=== PATIENT | female | born 1980 | race Two or more races ===

== ENCOUNTER 2017-04-26 03:38 | Emergency (ER) | payer MEDICAID, OTHER ==
[~2017-04-26] VITALS: Ht 152.4 cm; Wt 90.7 kg
[~2017-04-26 03:38] MED LIST: AMPH25CA PO
[2017-04-26] MEDS ORDERED: AZITHROMYCIN 250 MG TABLET PO ONE (04:00)
--- NOTE | 2017-04-26 04:10 | NUR ---
Pt ambulated to room with steady gait. Pt c/o sore throat and cough. Pt seen by Dr. Alvarado, given ABT and is stable for discharge per MD. Pt given ACI. Pt verbalized understanding of dc instructions. Pt ambulated out of ER with steady gait.
[2017-04-26 04:12] VITALS: BP 139/78
[2017-04-26] MEDS ORDERED: AZITHROMYCIN 250 MG TABLET ONE (04:16)
== END 2017-04-26 04:10 | disposition home or self-care (01) ==
LOC: ER 03:38
DX: J45.909 Unspecified asthma, uncomplicated (principal); E03.9 Hypothyroidism, unspecified; F17.200 Nicotine dependence, unspecified, uncomplicated
CPT/HCPCS: 99283; A4663; Q0144

== ENCOUNTER 2017-07-09 09:34 | Emergency (ER) | payer OTHER ==
[~2017-07-09] VITALS: Ht 154.9 cm; Wt 99.8 kg
--- NOTE | 2017-07-09 09:52 | NUR ---
Patient discharged to home in stable conditon. Written and verbal after care instructions given. Patient verbalizes understanding of instructions.
== END 2017-07-09 09:54 | disposition home or self-care (01) ==
LOC: ER 09:34
DX: J45.909 Unspecified asthma, uncomplicated (principal); E03.9 Hypothyroidism, unspecified; F17.200 Nicotine dependence, unspecified, uncomplicated
CPT/HCPCS: A4663

== ENCOUNTER 2018-07-05 09:57 | Emergency (ER) | payer OTHER ==
[~2018-07-05] VITALS: Ht 154.9 cm; Wt 77.1 kg
[2018-07-05] MEDS ORDERED: IV NORMAL SALINE 500 ML BAG IV ONE (10:15)
[2018-07-05] MEDS ORDERED: MORPHINE SULFATE 2 MG/1 ML DISP.SYRIN IV ONE (10:15)
--- NOTE | 2018-07-05 10:20 | NUR ---
PATIENT SEEN BY DR CORDERO FOR C/O ABDOMINAL PAIN. PLACED ON MONITOR.
[2018-07-05] MEDS ORDERED: MORPHINE SULFATE 4 MG/1 ML DISP.SYRIN ONE (10:27)
[2018-07-05 10:33] LABS: CARBON DIOXIDE 23 mmol/L (21-32); CHLORIDE 103 mmol/L (98-107); CREATININE 0.7 mg/dL (0.6-1.3); GLUCOSE 125 mg/dL (74-106); POTASSIUM 4.2 mmol/L (3.5-5.1); UREA NITROGEN, BLOOD 17 mg/dL (7-18)
[2018-07-05 10:35] LABS: BASOPHILS % (AUTO) 0.6 % (0.0-2.0); EOSINOPHILS # (AUTO) 0.1 K/uL (0.0-0.7); EOSINOPHILS % (AUTO) 1.4 % (0.0-7.0); HEMATOCRIT 44.1 % (31.2-41.9); HEMOGLOBIN 15.6 g/dL (10.9-14.3); LYMPHOCYTES # (AUTO) 2.6 K/uL (20.0-40.0); LYMPHOCYTES % (AUTO) 28.8 % (20.5-51.5); MEAN CORPUSCULAR HEMOGLOBIN 31.4 uug (24.7-32.8); MEAN CORPUSCULAR HGB CONC 35 g/dL (32.3-35.6); MONOCYTES # (AUTO) 0.5 K/uL (2.0-10.0); MONOCYTES % (AUTO) 5.6 % (0.0-11.0); NEUTROPHILS # (AUTO) 5.7 K/uL (1.8-8.9); NEUTROPHILS % (AUTO) 63.6 % (38.5-71.5); PLATELET COUNT (AUTO) 380 K/uL (179-408); RED BLOOD CELL COUNT(AUTO) 4.96 MIL/uL (3.63-4.92); WHITE BLOOD COUNT (AUTO) 8.9 K/uL (3.8-11.8)
[2018-07-05 10:38] LABS: ALANINE AMINOTRANSFERASE 44 U/L (14-59); ALKALINE PHOSPHATASE 82 U/L (50-136); ASPARTATE AMINOTRANSFERASE 15 U/L (15-37); BILIRUBIN,DIRECT < 0.1 mg/dL (0.0-0.2); BILIRUBIN,TOTAL 0.2 mg/dL (0.2-1.0); LIPASE 141 U/L (73-393); TOTAL PROTEIN, SERUM 7.6 g/dL (6.4-8.2)
[2018-07-05] MEDS ORDERED: SWABABLE VALVE TRANSFER SET EA MC ONE (11:10)
[2018-07-05] MEDS ORDERED: IOHEXOL 300MG/ML 100 ML INFUS..BTL ONE (11:10)
[2018-07-05] MEDS ORDERED: IV NORMAL SALINE 250 ML IV ONE (11:10)
--- NOTE | 2018-07-05 11:52 | NUR ---
PATIENT STATES PAIN HAS DIMINISHED.
--- NOTE | 2018-07-05 12:10 | NUR ---
IV removed. Catheter intact and site benign. Pressure and 4x4 gauze applied to site. No bleeding noted.
--- NOTE | 2018-07-05 12:10 | NUR ---
DC AND FOLLOW UP INSTRUCTIONS GIVEN AND EXPLAINED TO PATIENT WHO STATES SHE UNDERSTANDS ALL INSTRUCTIONS.
== END 2018-07-05 12:14 | disposition home or self-care (01) ==
LOC: ER 09:57
DX: G89.18 Other acute postprocedural pain (principal); R10.33 Periumbilical pain; J45.909 Unspecified asthma, uncomplicated; F17.200 Nicotine dependence, unspecified, uncomplicated; E03.9 Hypothyroidism, unspecified; Z90.49 Acquired absence of other specified parts of digestive tract
CPT/HCPCS: 36415; 74177; 80048; 80076; 83690; 84702; 85025; 96374; 99284; J2270; Q9967; A4663; J7040; J7050

== ENCOUNTER 2018-08-15 21:27 | Emergency (ER) | payer OTHER ==
[~2018-08-15] VITALS: Ht 154.9 cm; Wt 86.2 kg
--- NOTE | 2018-08-15 22:33 | NUR ---
Pt. ambulated into ED w/ c/o cough x 2 days w/ yellowish/brownish discharge - pt. is a long time smoker and has asthma although has not had a problem or used her inhaler in quite some time, and 8/10 lower back pain that radiates along her R LE - pt. states she has a chronic sciatic nerve problem
[2018-08-15] MEDS ORDERED: IBUPROFEN 800 MG TABLET PO ONE (22:45)
[2018-08-15] MEDS ORDERED: IBUPROFEN 800 MG TABLET ONE (22:49)
--- NOTE | 2018-08-15 22:56 | NUR ---
Patient discharged to home in stable conditon. Written and verbal after care instructions given. Patient verbalizes understanding of instructions. Pt. d/c w/ prescription per MD order, d/c papers signed, instructed not to drive, all belongings w/ pt., ID band removed, ambulated w/ steady gait off unit, NAD,
== END 2018-08-15 23:00 | disposition home or self-care (01) ==
LOC: ER 21:27
DX: M54.41 Lumbago with sciatica, right side (principal); J45.909 Unspecified asthma, uncomplicated; E03.9 Hypothyroidism, unspecified; Z90.49 Acquired absence of other specified parts of digestive tract; F17.200 Nicotine dependence, unspecified, uncomplicated
CPT/HCPCS: A4663

== ENCOUNTER 2018-11-29 23:40 | Emergency (ER) | payer OTHER ==
[~2018-11-29] VITALS: Ht 154.9 cm; Wt 93.9 kg
--- NOTE | 2018-11-30 00:04 | NUR ---
Came in to ER c/o flu like symptoms; cough, congestion and chest wall pain on inspiration x 1 week. To room 2B. Seen and evaluated by Dr. Fregoso.
[2018-11-30] MEDS ORDERED: ALBUTEROL SULFATE 2.5 MG/3 ML NEBU NEB ONE ×2 (00:15→00:45)
[2018-11-30] MEDS ORDERED: BENZONATATE 100 MG CAPSULE PO ONE (00:15)
[2018-11-30] MEDS ORDERED: IPRATROPIUM BROMIDE 0.5 MG/2.5 ML NEBU NEB ONE (00:15)
[2018-11-30] MEDS ORDERED: IPRATROPIUM BROMIDE 0.5 MG/2.5 ML NEBU ONE (00:22)
[2018-11-30] MEDS ORDERED: ALBUTEROL SULFATE 2.5 MG/3 ML NEBU ONE ×2 (00:22→00:49)
--- NOTE | 2018-11-30 00:23 | NUR ---
Breathing treatment given by RT.
[2018-11-30] MEDS ORDERED: BENZONATATE 100 MG CAPSULE ONE (00:24)
--- NOTE | 2018-11-30 00:35 | NUR ---
Reevaluated by Dr. Fregoso after resp. treatment. New orders noted.
--- NOTE | 2018-11-30 00:43 | NUR ---
Patient coughing non productively. Continuous Albuterol respiratory treatment given by Yosvany ESPAÑA. VS stable.
[2018-11-30] MEDS ORDERED: predniSONE 50 MG TABLET ONE (00:45)
[2018-11-30] MEDS ORDERED: predniSONE 10 MG TABLET ONE (00:45)
[2018-11-30] MEDS ORDERED: predniSONE 20 MG TABLET ONE (00:45)
[2018-11-30] MEDS ORDERED: predniSONE 10 MG TABLET PO ONE (00:45)
--- NOTE | 2018-11-30 01:10 | NUR ---
Ambulated to the BR; voided and having her menstruation. Pad provided.
--- NOTE | 2018-11-30 01:35 | NUR ---
Patient with on going respiratory treatment but patient wants to leave. 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 Dr Fregoso informed. spoke to patient.
--- NOTE | 2018-11-30 01:40 | NUR ---
Patient does not wish to proceed with medical care recommended by Dr. Fregoso. Patient given information related to possible complications, up to and including , which could occur as a result of leaving the hospital at this time. Patient verbalizes understanding of risks involved due to leaving against medical advice. Patient has signed AMA form.
[2018-11-30 02:02] VITALS: BP 128/70
== END 2018-11-30 01:45 | disposition left against medical advice (07) ==
LOC: ER 23:46
DX: J45.901 Unspecified asthma with (acute) exacerbation (principal); J20.9 Acute bronchitis, unspecified; E78.00 Pure hypercholesterolemia, unspecified; E03.9 Hypothyroidism, unspecified; F11.10 Opioid abuse, uncomplicated; F15.10 Other stimulant abuse, uncomplicated; F17.210 Nicotine dependence, cigarettes, uncomplicated; Z90.49 Acquired absence of other specified parts of digestive tract
CPT/HCPCS: 94640 ×2; 99284; J7512 ×3; A4663; J3590

== ENCOUNTER 2018-12-01 10:26 | Emergency (ER) | payer OTHER ==
[~2018-12-01] VITALS: Ht 154.9 cm; Wt 68.0 kg
--- NOTE | 2018-12-01 10:34 | NUR ---
Dr Merchant at the bedside for MSE.
[2018-12-01] MEDS ORDERED: predniSONE 10 MG TABLET ONE (10:43)
[2018-12-01] MEDS ORDERED: predniSONE 50 MG TABLET ONE (10:44)
[2018-12-01] MEDS ORDERED: predniSONE 10 MG TABLET PO ONE (10:45)
[2018-12-01] MEDS ORDERED: ALBUTEROL SULFATE 2.5 MG/3 ML NEBU NEB ONE (10:45)
[2018-12-01] MEDS ORDERED: IPRATROPIUM BROMIDE 0.5 MG/2.5 ML NEBU NEB ONE (10:45)
[2018-12-01] MEDS ORDERED: IPRATROPIUM BROMIDE 0.5 MG/2.5 ML NEBU ONE (10:51)
[2018-12-01] MEDS ORDERED: ALBUTEROL SULFATE 2.5 MG/3 ML NEBU ONE (10:51)
--- NOTE | 2018-12-01 11:34 | NUR ---
Patient discharged to home in stable conditon. Written and verbal after care instructions given. Patient verbalizes understanding of instructions. AMBULATORY, STEADY GAIT OUT OF ER.
[2018-12-01 11:35] VITALS: BP 124/86
== END 2018-12-01 11:37 | disposition home or self-care (01) ==
LOC: ER 10:26
DX: J20.9 Acute bronchitis, unspecified (principal); E78.00 Pure hypercholesterolemia, unspecified; E03.9 Hypothyroidism, unspecified; F11.10 Opioid abuse, uncomplicated; F15.10 Other stimulant abuse, uncomplicated; F17.210 Nicotine dependence, cigarettes, uncomplicated; Z90.49 Acquired absence of other specified parts of digestive tract
CPT/HCPCS: 94640; 99283; J7512 ×2; A4663; J3590

== ENCOUNTER 2019-02-28 07:05 | Emergency (ER) | payer OTHER ==
[~2019-02-28] VITALS: Ht 154.9 cm; Wt 95.3 kg
[2019-02-28] MEDS ORDERED: BP MED (07:24)
[2019-02-28] MEDS ORDERED: prozac (07:24)
[2019-02-28] MEDS ORDERED: wellbutrin (07:24)
[2019-02-28] MEDS ORDERED: predniSONE 20 MG TABLET PO ONE (07:45)
[2019-02-28] MEDS ORDERED: ALBUTEROL SULFATE 2.5 MG/3 ML NEBU NEB ONE (07:45)
[2019-02-28] MEDS ORDERED: predniSONE 10 MG TABLET ONE (07:49)
[2019-02-28] MEDS ORDERED: predniSONE 50 MG TABLET ONE (07:49)
[2019-02-28] MEDS ORDERED: ALBUTEROL SULFATE 2.5 MG/3 ML NEBU ONE (07:50)
== END 2019-02-28 08:41 | disposition home or self-care (01) ==
LOC: ER 07:11
DX: J45.901 Unspecified asthma with (acute) exacerbation (principal); J06.9 Acute upper respiratory infection, unspecified; I10 Essential (primary) hypertension; E78.00 Pure hypercholesterolemia, unspecified; F32.9 Major depressive disorder, single episode, unspecified; E03.9 Hypothyroidism, unspecified; F17.210 Nicotine dependence, cigarettes, uncomplicated; Z90.49 Acquired absence of other specified parts of digestive tract; Z79.899 Other long term (current) drug therapy
CPT/HCPCS: 71045; A4663; J7512

== ENCOUNTER 2019-03-06 20:35 | Emergency (ER) | payer OTHER ==
[~2019-03-06] VITALS: Ht 154.9 cm; Wt 90.7 kg
[~2019-03-06 20:35] MED LIST changes: -AMPH25CA PO; +BP MED; +prozac; +wellbutrin
[2019-03-06] MEDS: SULFAMETH/TRIMETH 800/160 MG TABLET PO ONE (21:25)
[2019-03-06] MEDS ORDERED: SULFAMETH/TRIMETH 800/160 MG TABLET ONE (21:28)
--- NOTE | 2019-03-06 21:30 | NUR ---
Patient discharged to home in stable conditon. Written and verbal after care instructions given. Patient verbalizes understanding of instructions. WALKED OUT OF ER WITH NO DISTRESS NOTED.
[2019-03-06 21:31] VITALS: BP 118/84
== END 2019-03-06 21:32 | disposition home or self-care (01) ==
LOC: ER 20:35
DX: L98.9 Disorder of the skin and subcutaneous tissue, unspecified (principal); E78.00 Pure hypercholesterolemia, unspecified; J45.909 Unspecified asthma, uncomplicated; F32.9 Major depressive disorder, single episode, unspecified; E03.9 Hypothyroidism, unspecified; F17.210 Nicotine dependence, cigarettes, uncomplicated; F15.10 Other stimulant abuse, uncomplicated; F11.10 Opioid abuse, uncomplicated; Z71.6 Tobacco abuse counseling; Z90.49 Acquired absence of other specified parts of digestive tract; Z79.899 Other long term (current) drug therapy
CPT/HCPCS: A4663

== ENCOUNTER 2019-06-16 09:40 | Emergency (ER) | payer OTHER ==
[~2019-06-16] VITALS: Ht 154.9 cm; Wt 102.5 kg
--- NOTE | 2019-06-16 10:00 | NUR ---
Patient discharged to home in stable conditon. Written and verbal after care instructions given. Patient verbalizes understanding of instructions. Patient ambulated with stable gait.
[2019-06-16 10:01] VITALS: BP 145/87
== END 2019-06-16 10:05 | disposition home or self-care (01) ==
LOC: ER 09:40
DX: J02.8 Acute pharyngitis due to other specified organisms (principal); B97.89 Other viral agents as the cause of diseases classified elsewhere; E78.00 Pure hypercholesterolemia, unspecified; J45.909 Unspecified asthma, uncomplicated; F32.9 Major depressive disorder, single episode, unspecified; E03.9 Hypothyroidism, unspecified; F17.210 Nicotine dependence, cigarettes, uncomplicated; F12.10 Cannabis abuse, uncomplicated; F11.10 Opioid abuse, uncomplicated; Z90.49 Acquired absence of other specified parts of digestive tract; Z79.899 Other long term (current) drug therapy
CPT/HCPCS: A4663

== ENCOUNTER 2020-11-29 08:21 | Emergency (ER) | payer OTHER ==
[~2020-11-29] VITALS: Ht 152.4 cm; Wt 102.1 kg
[~2020-11-29 08:21] MED LIST changes: +CIPR250T4 PO; +PRED20TA PO
--- NOTE | 2020-11-29 08:42 | NUR ---
MD Fregoso at bedside for assessment
[2020-11-29] MEDS ORDERED: IBUP800T54 PO (08:56)
--- NOTE | 2020-11-29 09:01 | NUR ---
Patient discharged to home in stable condition. No signs of acute distress noted, Rx sent to pharmacy, took all belongings. Written and verbal after care instructions given. Patient verbalizes understanding of instructions. Stressed follow up or return to ER for worsening s/s.
[2020-11-29 09:06] VITALS: BP 134/68
== END 2020-11-29 09:01 | disposition home or self-care (01) ==
LOC: ER 08:22
DX: M54.42 Lumbago with sciatica, left side (principal); M54.41 Lumbago with sciatica, right side; G56.03 Carpal tunnel syndrome, bilateral upper limbs; E03.9 Hypothyroidism, unspecified; J45.909 Unspecified asthma, uncomplicated; Z82.49 Family history of ischemic heart disease and other diseases of the circulatory system; Z83.3 Family history of diabetes mellitus; Z82.3 Family history of stroke; F17.210 Nicotine dependence, cigarettes, uncomplicated
CPT/HCPCS: A4663

== ENCOUNTER 2021-02-20 01:19 | Emergency (ER) | payer OTHER ==
[~2021-02-20] VITALS: Ht 152.4 cm; Wt 90.7 kg
[~2021-02-20 01:19] MED LIST changes: +IBUP800T54 PO
--- NOTE | 2021-02-20 01:30 | NUR ---
Patient arrived at the ER with c/o of right lower quadrant abdominal pain, hard time urinating and feeling bloated, after having sexual intercourse with her boyfriend yesterday.
--- NOTE | 2021-02-20 01:31 | NUR ---
Dr. Moreira at bedside for MSE.
[2021-02-20 01:56] LABS: HEMATOCRIT 43.2 % (31.2-41.9); MEAN CORPUSCULAR HEMOGLOBIN 30.3 uug (24.7-32.8); PLATELET COUNT (AUTO) 324 K/uL (179-408)
--- NOTE | 2021-02-20 02:44 | NUR ---
Patient discharged to home in stable condition. Written and verbal after care instructions given. Patient verbalizes understanding of instructions. Stressed follow up or return to ER for worsening s/s.
[2021-02-20] MEDS ORDERED: IV NORMAL SALINE 250 ML IV ONE (03:14)
[2021-02-20] MEDS ORDERED: IOHEXOL 300MG/ML 100 ML INFUS..BTL ONE (03:14)
[2021-02-20] MEDS ORDERED: SWABABLE VALVE TRANSFER SET EA MC ONE (03:14)
[2021-02-20 04:08] VITALS: BP 137/89
[2021-02-20 04:44] LABS: CREATININE 0.8 mg/dL (0.6-1.3); POTASSIUM 3.7 mmol/L (3.5-5.1)
[2021-02-20 04:45] LABS: BILIRUBIN,DIRECT 0.1 mg/dL (0.0-0.2); BILIRUBIN,TOTAL 0.3 mg/dL (0.2-1.0)
[2021-02-20 04:46] LABS: TOTAL PROTEIN, SERUM 7.7 g/dL (6.4-8.2)
== END 2021-02-20 02:44 | disposition home or self-care (01) ==
LOC: ER 01:28
DX: R10.31 Right lower quadrant pain (principal); F17.210 Nicotine dependence, cigarettes, uncomplicated; Z83.3 Family history of diabetes mellitus; Z82.3 Family history of stroke; Z82.49 Family history of ischemic heart disease and other diseases of the circulatory system; E03.9 Hypothyroidism, unspecified; Z90.49 Acquired absence of other specified parts of digestive tract; J45.909 Unspecified asthma, uncomplicated; R03.0 Elevated blood-pressure reading, without diagnosis of hypertension
CPT/HCPCS: 36415; 83605; 83690; 85025; A4663; J7050; Q9967

== ENCOUNTER 2021-03-08 14:35 | Emergency (ER) | payer OTHER ==
[~2021-03-08] VITALS: Ht 152.4 cm; Wt 90.7 kg
[2021-03-08] MEDS ORDERED: IBUP-1955 PO (15:08)
[2021-03-08] MEDS ORDERED: ACET-2154 PO (15:08)
[2021-03-08] MEDS ORDERED: BACL10TA PO (15:08)
[2021-03-08] MEDS ORDERED: LIDO30AD10 TD (15:08)
[2021-03-08 15:10] LABS: *URINE HCG, QUAL NEGATIVE (NEGATIVE)
[2021-03-08] MEDS ORDERED: DEXAMETHASONE SOD PHOSPHATE 4 MG INJ IM ONE (15:15)
[2021-03-08] MEDS ORDERED: LIDOCAINE 5% PATCH TD ONE ×2 (15:15→15:44)
[2021-03-08] MEDS ORDERED: KETOROLAC TROMETHAMINE 30 MG INJ IM ONE (15:15)
[2021-03-08] MEDS ORDERED: ACETAMINOPHEN 325 MG TABLET PO ONE (15:15)
[2021-03-08] MEDS ORDERED: ACETAMINOPHEN 325 MG TABLET ONE (15:43)
[2021-03-08] MEDS ORDERED: KETOROLAC TROMETHAMINE 30 MG INJ ONE (15:44)
[2021-03-08] MEDS ORDERED: DEXAMETHASONE SOD PHOSPHATE 4 MG INJ ONE (15:44)
== END 2021-03-08 16:00 | disposition home or self-care (01) ==
LOC: ER 14:37
DX: S16.1XXA Strain of muscle, fascia and tendon at neck level, initial encounter (principal); X50.0XXA Overexertion from strenuous movement or load, initial encounter; X50.9XXA Other and unspecified overexertion or strenuous movements or postures, initial encounter; Y93.89 Activity, other specified; Y92.89 Other specified places as the place of occurrence of the external cause; J45.909 Unspecified asthma, uncomplicated; F17.210 Nicotine dependence, cigarettes, uncomplicated; E03.9 Hypothyroidism, unspecified; R03.0 Elevated blood-pressure reading, without diagnosis of hypertension; Z83.3 Family history of diabetes mellitus; Z82.3 Family history of stroke; Z82.49 Family history of ischemic heart disease and other diseases of the circulatory system; Z90.49 Acquired absence of other specified parts of digestive tract; E66.9 Obesity, unspecified; Z68.39 Body mass index [BMI] 39.0-39.9, adult
CPT/HCPCS: 84703; 99283; 99406; J1100; J1885; A4663

== ENCOUNTER 2021-07-21 10:11 | Emergency (ER) | payer OTHER ==
[~2021-07-21] VITALS: Ht 152.4 cm; Wt 90.7 kg
[~2021-07-21 10:11] MED LIST changes: +ACET-2154 PO; +BACL10TA PO; +IBUP-1955 PO; +LIDO30AD10 TD
[2021-07-21] MEDS ORDERED: ONDANSETRON 4 MG/2 ML VIAL IV ONE (10:45)
[2021-07-21] MEDS ORDERED: FAMOTIDINE. 20 MG/2 ML VIAL IV ONE ×2 (10:45→11:09)
[2021-07-21] MEDS ORDERED: IV NORMAL SALINE 100 ML BAG IV ONE (10:45)
[2021-07-21] MEDS ORDERED: SWABABLE VALVE TRANSFER SET EA MC ONE (11:01)
[2021-07-21] MEDS ORDERED: IV NORMAL SALINE 250 ML IV ONE (11:01)
[2021-07-21] MEDS ORDERED: IOHEXOL 300MG/ML 100 ML INFUS..BTL ONE (11:01)
[2021-07-21] MEDS ORDERED: ONDANSETRON 4 MG/2 ML VIAL ONE (11:09)
[2021-07-21 11:13] LABS: HEMATOCRIT 43.1 % (31.2-41.9); MEAN CORPUSCULAR HEMOGLOBIN 30.1 uug (24.7-32.8); MEAN CORPUSCULAR VOLUME 87.9 fL (75.5-95.3); PLATELET COUNT (AUTO) 294 K/uL (179-408)
[2021-07-21 11:14] LABS: *BILIRUBIN,URIN NEGATIVE (NEGATIVE); *BLOOD, URINE NEGATIVE (NEGATIVE); *CLARITY,URINE CLOUDY (CLEAR); *COLOR,URINE YELLOW (YELLOW); *KETONES,URINE NEGATIVE (NEGATIVE); LEUKOCYTE ESTERASE ,URINE NEGATIVE (NEGATIVE); NITRITE, URINE NEGATIVE (NEGATIVE); PH,URINE 5.5 (5.0-8.0); UGLUCOSE NEGATIVE (NEGATIVE)
[2021-07-21 11:16] LABS: *URINE HCG, QUAL NEGATIVE (NEGATIVE)
[2021-07-21 11:24] LABS: BACTERIA,URINE NONE SEEN /HPF (NONE SEEN); RBC,URINE 0-3 /HPF (0-3); SQUAMOUS EPITHELIAL CELL,UR FEW /HPF (NONE SEEN); WBC,URINE 0-3 /HPF (0-3)
[2021-07-21 11:25] LABS: BILIRUBIN,TOTAL 0.6 mg/dL (0.2-1.0); CREATININE 0.7 mg/dL (0.6-1.3); POTASSIUM 4.1 mmol/L (3.5-5.1); TOTAL PROTEIN, SERUM 7.3 g/dL (6.4-8.2); URINE AMORPHOUS URATE MANY /HPF
--- NOTE | 2021-07-21 11:53 | NUR ---
Pt back from CT scan. States improvement with S/S. Aware we will await results of labs and scan. Pt in no acute distress at this time.
--- NOTE | 2021-07-21 13:00 | NUR ---
IV fluids complete. Pt states improvement in S/S. Provider notified.
--- NOTE | 2021-07-21 13:05 | NUR ---
D/C'd saline lock, clear and intact.
--- NOTE | 2021-07-21 13:40 | NUR ---
Pt D/C by SOFI Andrade
[2021-07-21 13:46] VITALS: BP 137/83
== END 2021-07-21 13:40 | disposition home or self-care (01) ==
LOC: ER 10:11
DX: R10.13 Epigastric pain (principal); R10.32 Left lower quadrant pain; E66.9 Obesity, unspecified; Z90.49 Acquired absence of other specified parts of digestive tract; Z68.39 Body mass index [BMI] 39.0-39.9, adult; Z83.3 Family history of diabetes mellitus; Z82.3 Family history of stroke; Z82.49 Family history of ischemic heart disease and other diseases of the circulatory system; F17.210 Nicotine dependence, cigarettes, uncomplicated; J45.909 Unspecified asthma, uncomplicated; E03.9 Hypothyroidism, unspecified; Z87.01 Personal history of pneumonia (recurrent)
CPT/HCPCS: 36415; 74177; 80053; 81001; 83690; 84703; 85025; 96361; 96374; 96375; 99285; J2405; J3490; Q9967; A4663; J7030; J7050

== ENCOUNTER 2022-07-19 21:03 | Emergency (ER) | payer OTHER ==
[~2022-07-19] VITALS: Ht 149.9 cm; Wt 86.2 kg
--- NOTE | 2022-07-19 21:28 | NUR ---
Dr. Chase evaluating patient at bedside. MSE in progress.
--- NOTE | 2022-07-19 21:35 | NUR ---
Patient taken to Xray via wheelchair.
[2022-07-19] MEDS ORDERED: OXYC-133 PO (21:59)
[2022-07-19 22:12] VITALS: BP 115/92
== END 2022-07-19 22:14 | disposition home or self-care (01) ==
LOC: ER 21:09
DX: S20.211A Contusion of right front wall of thorax, initial encounter (principal); W19.XXXA Unspecified fall, initial encounter; Y92.89 Other specified places as the place of occurrence of the external cause; F17.210 Nicotine dependence, cigarettes, uncomplicated; Z90.49 Acquired absence of other specified parts of digestive tract; J45.909 Unspecified asthma, uncomplicated; Z87.01 Personal history of pneumonia (recurrent); E03.9 Hypothyroidism, unspecified; Z83.3 Family history of diabetes mellitus; Z82.3 Family history of stroke; Z82.49 Family history of ischemic heart disease and other diseases of the circulatory system; F19.21 Other psychoactive substance dependence, in remission
CPT/HCPCS: 71046; A4663

== ENCOUNTER 2022-10-18 03:06 | Emergency (ER) | payer OTHER ==
[~2022-10-18] VITALS: Ht 149.9 cm; Wt 78.9 kg
[~2022-10-18 03:06] MED LIST changes: +OXYC-133 PO
[2022-10-18] MEDS ORDERED: KETOROLAC TROMETHAMINE 60 MG INJ IM ONE ×2 (03:45→04:19)
[2022-10-18] MEDS ORDERED: HYDR-3980 PO (03:52)
[2022-10-18 04:30] VITALS: BP 126/95
== END 2022-10-18 04:30 | disposition home or self-care (01) ==
LOC: ER 03:06
DX: M54.41 Lumbago with sciatica, right side (principal); J45.909 Unspecified asthma, uncomplicated; E03.9 Hypothyroidism, unspecified; F17.210 Nicotine dependence, cigarettes, uncomplicated; Z71.6 Tobacco abuse counseling; Z90.49 Acquired absence of other specified parts of digestive tract; Z79.1 Long term (current) use of non-steroidal anti-inflammatories (NSAID); Z79.899 Other long term (current) drug therapy
CPT/HCPCS: 99283; 96372; J1885; A4663

== ENCOUNTER 2022-10-29 08:38 | Emergency (ER) | payer OTHER ==
[~2022-10-29] VITALS: Ht 149.9 cm; Wt 78.9 kg
[~2022-10-29 08:38] MED LIST changes: +HYDR-3980 PO
--- NOTE | 2022-10-29 08:53 | NUR ---
Pt seen by MD for bedside Eval. Safety measures in place. Will continue to monitor.
[2022-10-29] MEDS ORDERED: HYDR-4209 PO ×2 (08:56→09:12)
[2022-10-29] MEDS ORDERED: NAPR-1009 PO (08:56)
--- NOTE | 2022-10-29 09:04 | NUR ---
Patient discharged to home in stable condition. Written and verbal after care instructions given. Patient verbalizes understanding of instructions. Gave the patient an excuse note for work for only 10/29. Stressed follow up or return to ER for worsening s/s.
[2022-10-29] MEDS ORDERED: HYDR-3980 PO (09:10)
[2022-10-29 09:44] VITALS: BP 158/89
== END 2022-10-29 09:46 | disposition home or self-care (01) ==
LOC: ER 08:38
DX: M54.41 Lumbago with sciatica, right side (principal); J45.909 Unspecified asthma, uncomplicated; E03.9 Hypothyroidism, unspecified; F17.210 Nicotine dependence, cigarettes, uncomplicated; Z90.49 Acquired absence of other specified parts of digestive tract; Z79.1 Long term (current) use of non-steroidal anti-inflammatories (NSAID); Z79.2 Long term (current) use of antibiotics; Z79.899 Other long term (current) drug therapy
CPT/HCPCS: A4663

== ENCOUNTER 2023-11-09 21:35 | Emergency (ER) | payer MEDICAID, OTHER ==
[~2023-11-09] VITALS: Ht 152.4 cm; Wt 74.8 kg
[~2023-11-09 21:35] MED LIST changes: +NAPR-1009 PO
[2023-11-10] MEDS ORDERED: IBUP-1490 PO (00:43)
[2023-11-10] MEDS ORDERED: IBUPROFEN 600 MG TABLET ONE (00:44)
[2023-11-10] MEDS ORDERED: ONDANSETRON ODT 4 MG TAB.RAPDIS ONE (00:45)
[2023-11-10] MEDS ORDERED: OXYCODONE/APAP 5-325 MG TABLET ONE (00:45)
[2023-11-10] MEDS: IBUPROFEN 600 MG TABLET PO ONE (00:47)
[2023-11-10] MEDS: ONDANSETRON ODT 4 MG TAB.RAPDIS SL ONE (00:48)
[2023-11-10] MEDS: OXYCODONE/APAP 5-325 MG TABLET PO ONE (00:48)
[2023-11-10 01:56] VITALS: BP 118/82; TEMP 98; O2SAT 98
== END 2023-11-10 01:56 | disposition home or self-care (01) ==
LOC: ER 21:37
DX: M25.511 Pain in right shoulder (principal); J45.909 Unspecified asthma, uncomplicated; E03.9 Hypothyroidism, unspecified; F17.210 Nicotine dependence, cigarettes, uncomplicated; Z79.899 Other long term (current) drug therapy
CPT/HCPCS: 73020; A4606; A4663; Q0162

== ENCOUNTER 2024-09-25 18:40 | Emergency (ER) | payer OTHER ==
[~2024-09-25] VITALS: Ht 149.9 cm; Wt 77.1 kg
[~2024-09-25 18:40] MED LIST changes: +ALBU6.7H9 INH; +FLUT12AE20 INH; +IBUP-1490 PO
[2024-09-25] MEDS ORDERED: ACETAMINOPHEN 500 MG TABLET PO ONE (20:45)
[2024-09-25] MEDS ORDERED: IBUPROFEN 600 MG TABLET PO ONE (20:45)
[2024-09-25] MEDS ORDERED: SULFAMETH/TRIMETH 800/160 MG TABLET ONE (21:06)
[2024-09-25] MEDS ORDERED: diphenhydrAMINE 50 MG/1 ML VIAL ONE (21:06)
[2024-09-25] MEDS ORDERED: HYDROMORPHONE 1 MG/1 ML DISP.SYRIN ONE (21:07)
[2024-09-25] MEDS: diphenhydrAMINE 50 MG/1 ML VIAL IM ONE (21:17)
[2024-09-25] MEDS: SULFAMETH/TRIMETH 800/160 MG TABLET PO ONE (21:17)
[2024-09-25] MEDS: HYDROMORPHONE 1 MG/1 ML DISP.SYRIN IM ONE (21:17)
[2024-09-25] MEDS: LIDOCAINE HCL 1% 20 ML VIAL TP ONE (22:45)
[2024-09-25] MEDS ORDERED: HYDR-3980 PO (23:03)
[2024-09-25] MEDS ORDERED: SULF1TAB48 PO (23:03)
[2024-09-25 23:32] VITALS: BP 135/72; TEMP 98.1; O2SAT 98
== END 2024-09-25 23:33 | disposition home or self-care (01) ==
LOC: ER 18:43
DX: L02.215 Cutaneous abscess of perineum (principal); E03.9 Hypothyroidism, unspecified; E78.5 Hyperlipidemia, unspecified; F17.210 Nicotine dependence, cigarettes, uncomplicated; F32.A Depression, unspecified; J45.909 Unspecified asthma, uncomplicated; Z79.51 Long term (current) use of inhaled steroids; Z79.52 Long term (current) use of systemic steroids; Z79.899 Other long term (current) drug therapy; Z90.49 Acquired absence of other specified parts of digestive tract; Z88.7 Allergy status to serum and vaccine
CPT/HCPCS: 56405; 96372; 99284; J1171; J1200; A4606; A4663

== ENCOUNTER 2024-11-24 14:59 | Emergency (ER) | payer OTHER ==
[~2024-11-24] VITALS: Ht 152.4 cm; Wt 79.8 kg
[~2024-11-24 14:59] MED LIST changes: +SULF1TAB48 PO
[2024-11-24] MEDS ORDERED: NAPR500T6 PO (15:53)
[2024-11-24] MEDS ORDERED: SULF1TAB48 PO (15:53)
[2024-11-24 16:04] VITALS: BP 110/63; O2SAT 98
== END 2024-11-24 16:05 | disposition home or self-care (01) ==
LOC: ER 15:06
DX: M54.31 Sciatica, right side (principal); M79.651 Pain in right thigh; F17.210 Nicotine dependence, cigarettes, uncomplicated; J45.909 Unspecified asthma, uncomplicated; E03.9 Hypothyroidism, unspecified; Z79.51 Long term (current) use of inhaled steroids; Z79.52 Long term (current) use of systemic steroids; Z79.899 Other long term (current) drug therapy; Z88.7 Allergy status to serum and vaccine; Z90.49 Acquired absence of other specified parts of digestive tract
CPT/HCPCS: A4606; A4663

== ENCOUNTER 2024-12-26 16:29 | Emergency (ER) | payer OTHER ==
[~2024-12-26] VITALS: Ht 149.9 cm; Wt 77.1 kg
[~2024-12-26 16:29] MED LIST changes: +NAPR500T6 PO
[2024-12-26] MEDS ORDERED: METH4TAB21 PO (17:45)
[2024-12-26] MEDS ORDERED: LIDO30AD10 TP (17:45)
[2024-12-26] MEDS ORDERED: CYCL5TAB PO (17:45)
[2024-12-26] MEDS ORDERED: NAPR-1009 PO (17:45)
[2024-12-26] MEDS ORDERED: LIDOCAINE 5% PATCH TD ONE (17:48)
[2024-12-26] MEDS ORDERED: KETOROLAC TROMETHAMINE 15 MG INJ ONE (17:48)
[2024-12-26] MEDS: LIDOCAINE 5% PATCH TD ONE (18:00)
[2024-12-26] MEDS: KETOROLAC TROMETHAMINE 15 MG INJ IM ONE (18:00)
[2024-12-26 18:33] VITALS: BP 132/74; TEMP 98; O2SAT 100
== END 2024-12-26 18:34 | disposition home or self-care (01) ==
LOC: ER 16:35
DX: M54.41 Lumbago with sciatica, right side (principal); E03.9 Hypothyroidism, unspecified; F17.210 Nicotine dependence, cigarettes, uncomplicated; Z79.51 Long term (current) use of inhaled steroids; Z79.52 Long term (current) use of systemic steroids; Z79.899 Other long term (current) drug therapy; Z88.7 Allergy status to serum and vaccine; Z90.49 Acquired absence of other specified parts of digestive tract
CPT/HCPCS: A4606; A4663; J1885

== ENCOUNTER 2025-02-02 20:54 | Emergency (ER) | payer OTHER ==
[~2025-02-02 20:54] MED LIST changes: +CYCL5TAB PO; +LIDO30AD10 TP; +METH4TAB21 PO
== END 2025-02-02 21:46 | disposition left against medical advice (07) ==
LOC: ER 20:54
DX: M79.606 Pain in leg, unspecified (principal); E03.9 Hypothyroidism, unspecified; F17.210 Nicotine dependence, cigarettes, uncomplicated; J45.909 Unspecified asthma, uncomplicated; Z79.51 Long term (current) use of inhaled steroids; Z79.52 Long term (current) use of systemic steroids; Z79.899 Other long term (current) drug therapy; Z82.3 Family history of stroke; Z82.49 Family history of ischemic heart disease and other diseases of the circulatory system; Z90.49 Acquired absence of other specified parts of digestive tract; Z88.7 Allergy status to serum and vaccine; Z87.39 Personal history of other diseases of the musculoskeletal system and connective tissue; Z53.21 Procedure and treatment not carried out due to patient leaving prior to being seen by health care provider

== ENCOUNTER 2025-02-05 18:52 | Emergency (ER) | payer OTHER ==
[~2025-02-05] VITALS: Ht 149.9 cm; Wt 82.6 kg
[2025-02-05] MEDS ORDERED: HYDROMORPHONE 1 MG/1 ML DISP.SYRIN ONE (21:20)
[2025-02-05] MEDS ORDERED: ONDANSETRON HCL 4 MG TABLET ONE (21:20)
[2025-02-05] MEDS: ONDANSETRON HCL 4 MG TABLET PO ONE (21:22)
[2025-02-05] MEDS: HYDROMORPHONE 1 MG/1 ML DISP.SYRIN IM ONE (21:22)
[2025-02-05 21:31] LABS: *BILIRUBIN,URIN NEGATIVE (NEGATIVE); *BLOOD, URINE NEGATIVE (NEGATIVE); *CLARITY,URINE CLEAR (CLEAR); *COLOR,URINE YELLOW (YELLOW); *KETONES,URINE NEGATIVE (NEGATIVE); *PROTEIN,URINE NEGATIVE (NEGATIVE); *UROBILINOGEN,URINE 1.0 E.U./dl (NORMAL); LEUKOCYTE ESTERASE ,URINE NEGATIVE (NEGATIVE); NITRITE, URINE NEGATIVE (NEGATIVE); UGLUCOSE NEGATIVE (NEGATIVE)
[2025-02-05 21:36] LABS: *URINE HCG, QUAL NEGATIVE (NEGATIVE)
[2025-02-05 21:40] LABS: *AMPHETAMINE, URINE POSITIVE (NEGATIVE); *BARBITURATE, URINE NEGATIVE (NEGATIVE); *BENZODIAZEPINE, URINE NEGATIVE (NEGATIVE); *CANNABINOID, URINE NEGATIVE (NEGATIVE); *COCCAINE, URINE NEGATIVE (NEGATIVE); *OPIATE, URINE POSITIVE (NEGATIVE); *PHENCYCLIDINE SCREEN,URINE NEGATIVE (NEGATIVE); FENTANYL, URINE NEGATIVE (NEGATIVE)
[2025-02-05 22:16] VITALS: BP 117/81
[2025-02-05] MEDS ORDERED: GABA-532 PO (22:47)
[2025-02-05 22:54] VITALS: BP 118/69; TEMP 98; O2SAT 96
== END 2025-02-05 23:00 | disposition home or self-care (01) ==
LOC: ER 18:54
DX: M51.16 Intervertebral disc disorders with radiculopathy, lumbar region (principal); M25.562 Pain in left knee; M25.561 Pain in right knee; F17.200 Nicotine dependence, unspecified, uncomplicated; G89.29 Other chronic pain; J45.909 Unspecified asthma, uncomplicated; F31.9 Bipolar disorder, unspecified; M43.16 Spondylolisthesis, lumbar region; Z79.51 Long term (current) use of inhaled steroids; Z79.52 Long term (current) use of systemic steroids; Z79.899 Other long term (current) drug therapy; Z88.7 Allergy status to serum and vaccine; Z90.49 Acquired absence of other specified parts of digestive tract; Z87.19 Personal history of other diseases of the digestive system
CPT/HCPCS: 99285; 72131; 84703; 73564 ×2; 96372; 80307; 81001; J1171; A4606; A4663; Q0162